=== PATIENT | female | born 1970 | race Caucasian/White ===

== ENCOUNTER → 2016-04-09 | Outpatient (CLI) | payer BC ==
--- NOTE | 2016-04-09 15:37 | MAMMOGRAPHY REPORT ---
BILATERAL DIGITAL SCREENING MAMMOGRAM TOMOSYNTHESIS WITH CAD: 04/09/2016 TECHNIQUE: Breast tomosynthesis in addition to standard 2D mammography was performed. Current study was also evaluated with a Computer Aided Detection (CAD) system. Tomosynthesis images were obtaine d of the implant displaced views only. COMPARISON: Comparison is made to exam dated: 05/28/2008. BREAST COMPOSITION: There are scattered areas of fibroglandular density in both breasts. FINDINGS: No suspicious masses, calcifications, or areas of architectural distortion are noted in e ither breast. There has been no significant interval change compared to prior exams. Bilateral subp ectoral saline implants are intact. IMPRESSION: ACR BI-RADS CATEGORY 2: BENIGN There is no mammographic evidence of malignancy. A 1 year screening mammogram is recommended. The p atient will receive written notification of the results. Approximately 10% of breast cancers are not detected with mammography. A negative mammographic repor t should not delay biopsy if a clinically suggestive mass is present. Kendal Barry M.D. ah/:04/09/2016 14:49:50 Back Filler Operator: Brittnee ROWLEY(R)(M), [facility] letter sent: Normal 1/2 BI-RADS Code: ACR BI-RADS Category 2: Benign
== END | disposition home or self-care (01) ==
LOC: C.MAMM 13:04
PROVIDERS: ATTEND Obstetrics & Gynecology
DX: Z12.31 Encounter for screening mammogram for malignant neoplasm of breast (principal)

== ENCOUNTER → 2017-01-27 | Outpatient (CLI) | payer BC ==
[2017-01-27 12:17] LABS: BASO % 0.5 %; BASO ABS # 0.02 K/uL (0-0.2); COMPLETE YES; EOS % 4.8 %; HEMATOCRIT 37.6 % (37-47); IG% 0.3 %; LYMPH % 30.1 %; LYMPH ABS # 1.19 K/uL (1.2-3.4); MEAN CELL VOLUME 88.1 fL (80-100); MEAN CORPUSCULAR HEMOGLOBIN 29.5 pg (25-34); MEAN CORPUSCULAR HGB CONC 33.5 g/dl (32-36); MEAN PLATELET VOLUME 9.5 fL (7.4-10.4); MONO % 8.1 %; NEUT % 56.2 %; PLATELET COUNT 252 K/uL (130-400); RED BLOOD COUNT 4.27 M/uL (4.2-5.4); WHITE BLOOD COUNT 3.96 K/uL (4.8-10.8)
[2017-01-27 12:44] LABS: TESTOSTERONE,TOTAL 17.7 ng/dl; THYROXINE (T4) 5.6 mcg/dl (4.5-10.9)
[2017-01-27 13:11] LABS: ALB/GLOB RATIO 1.2 (0.9-2); ALKALINE PHOSPHATASE 46 U/L (45-117); ALT/SGPT 17 U/L (12-78); AST/SGOT 14 U/L (15-37); BLOOD UREA NITROGEN 15 mg/dl (7-18); BUN/CREATININE RATIO 18.4 (10-20); CALCIUM 8.4 mg/dl (8.5-10.1); CARBON DIOXIDE 24 mmol/L (21-32); CHLORIDE 107 mmol/L (98-107); CREATININE 0.84 mg/dl (0.60-1.20); GLUCOSE 89 mg/dl (70-99); POTASSIUM 4.2 mmol/L (3.5-5.1); SODIUM 138 mmol/L (136-145)
[2017-01-28 16:29] LABS: MICROSOMAL AB 1 IU/ML (<9)
== END | disposition home or self-care (01) ==
LOC: C.LABBFT 08:26
PROVIDERS: ATTEND Family Medicine
DX: E55.9 Vitamin D deficiency, unspecified (principal); E03.9 Hypothyroidism, unspecified; D51.9 Vitamin B12 deficiency anemia, unspecified

== ENCOUNTER → 2017-06-23 | Outpatient (CLI) | payer BC | END | disposition home or self-care (01) | LOC: C.PAPS 15:15 | PROVIDERS: ATTEND Obstetrics & Gynecology | DX: Z01.419 Encounter for gynecological examination (general) (routine) without abnormal findings (principal) ==

== ENCOUNTER → 2017-07-20 | Outpatient (CLI) | payer BC ==
[~2017-07-20] MED LIST: METH1LOZ PO; THYR90TA PO; VITATAB8 PO; [UNRECOGNIZED DRUG - OTHER] PO
[2017-07-20 19:05] LABS: BASO % 0.5 %; BASO ABS # 0.03 K/uL (0-0.2); EOS % 3.4 %; EOS ABS # 0.21 K/uL (0-0.5); HEMOGLOBIN 11.7 g/dL (12.0-16.0); IG# 0.02 K/uL (0.00-0.02); LYMPH % 30.9 %; LYMPH ABS # 1.88 K/uL (1.2-3.4); MEAN CELL VOLUME 81.6 fL (80-100); MEAN CORPUSCULAR HEMOGLOBIN 27.3 pg (25-34); MEAN CORPUSCULAR HGB CONC 33.4 g/dl (32-36); MEAN PLATELET VOLUME 8.6 fL (7.4-10.4); MONO % 9.5 %; MONO ABS # 0.58 K/uL (0.11-0.59); NEUT % 55.4 %; NEUT ABS # 3.37 K/uL (1.4-6.5); PLATELET COUNT 333 K/uL (130-400); RED CELL DISTRIBUTION WIDTH CV 14.8 % (11.5-14.5); RED CELL DISTRIBUTION WIDTH SD 44.1 fL (36.4-46.3); WHITE BLOOD COUNT 6.09 K/uL (4.8-10.8)
[2017-07-20 19:18] LABS: PTT PATIENT 25.7 SECONDS (21.0-31.0)
[2017-07-20 19:23] LABS: BLOOD UREA NITROGEN 25 mg/dl (7-18); CALCIUM 8.6 mg/dl (8.5-10.1); CARBON DIOXIDE 27 mmol/L (21-32); CREATININE 1.05 mg/dl (0.60-1.20); GLUCOSE 96 mg/dl (70-99); POTASSIUM 3.9 mmol/L (3.5-5.1); SODIUM 141 mmol/L (136-145)
== END | disposition home or self-care (01) ==
LOC: C.LAB 18:41
PROVIDERS: ATTEND Physician Assistant
DX: Z01.818 Encounter for other preprocedural examination (principal); D17.1 Benign lipomatous neoplasm of skin and subcutaneous tissue of trunk

== ENCOUNTER → 2017-07-29 | Day surgery (SDC) | payer BC ==
[2017-07-21 11:05] VITALS: Ht 162.6 cm; Wt 74.5 kg
[~2017-07-29] VITALS: Ht 162.6 cm; Wt 74.5 kg
[~2017-07-29] MED LIST changes: +ACETAMINOPHEN 325 MG TAB PO PRN; +ATROPINE SULFATE 0.1 MG/ML 5ML SYR IV PRN; +BUPIVACAINE 0.25% 30 ML VIAL ONE; +CEFAZOLIN 2000MG IV PUSH 15 ML IV SCH; +DEXAMETHASONE SOD INJ 4 MG/ML VIAL ONE; +EpHEDrine SULFATE 50MG/5ML SYR ONE; +EpHEDrine SULFATE INJ 50 MG/ML AMP IV PRN; +FENTANYL CITRATE INJ 50 MCG/1 ML 2 ML VIAL IV PRN; +FENTANYL CITRATE INJ 50 MCG/1 ML 2 ML VIAL ONE; +GLYCOPYRROLATE INJ 0.2 MG/ML VIAL ONE; +LACTATED RINGER'S 1000ML 1,000 ML IV SCH; +LIDOCAINE HCL 2% 2 ML VIAL (20MG/ML) ONE; +LIDOCAINE/EPINEPHRINE 1% 20 ML VIAL ONE; +METOCLOPRAMIDE HCL INJ 5 MG/ML 2 ML VIAL IV PRN; +METOCLOPRAMIDE HCL INJ 5 MG/ML 2 ML VIAL ONE; +MIDAZOLAM HCL 1 MG/ML 2ML VIAL ONE; +NEOSTIGMINE METHYLSULFATE 5 MG/5 ML SYR ONE; +ONDANSETRON INJ 2 MG/ML 2 ML VIAL IV PRN; +ONDANSETRON INJ 2 MG/ML 2 ML VIAL ONE; +OXYCODONE/ACETAMINOPHEN 5-325 TAB PO PRN; +PROPOFOL IV EMULSION 10 MG/ML 20 ML VIAL ONE; +ROCURONIUM BROMIDE 10 MG/ML 5 ML VIAL ONE; +SODIUM CHLORIDE 0.9% 1000ML 1,000 ML IV SCH
--- NOTE | 2017-07-29 08:14 | History & Physical Bridge - [place] ---
H&P Re-Evaluation Bridge Note: I have examined the patient, reviewed the History & Physical and in the interval since the performance of the History & Physical I have noted the following changes of clinical significance: No changes noted
--- NOTE | 2017-07-29 09:09 | [facility] Post Operative Brief Note ---
Immediate Operative Summary Operative Date July 29, 2017. Pre-Operative Diagnosis LIPOMA OF BACK Post-Operative Diagnosis SAME Procedure(s) Performed Central Back Lipoma Excision Surgeon Dr. Kg De La Vega Rate Clerk Passenger Surgeon(s) Suzi Sue PA-C Estimated Blood Loss 2 Findings Consistent with Post-Op Diagnosis Specimens A. Lipoma of Back Drains 1/4 inch kali Anesthesia Type General Complication(s) none Disposition Disposition: Recovery Room / PACU
--- NOTE | 2017-07-29 09:17 | Discharge Instructions ---
Discharge Instructions Date of Service July 29, 2017. Admission Reason for Admission: Lipoma Of Back Discharge Discharge Diagnosis / Problem: recurrent lipoma Discharge Goals Goal(s): Decrease discomfort Activity Recommendations Activity Limitations: per Instructions/Follow-up section ACTIVITY RECOMMENDATIONS: __Normal activities _x_No bending, lifting or straining __No driving x__Driving allowed when you are off pain medications _x_Walking permitted __You should have help at home for ___ days DRESSINGS: __No dressings required _x_Keep dressings dry/in place until first office visit. Expect bloody drainage on the gauze. This is due to the drain in place and is normal. __Remove dressings ___ and leave dressings off _x_Apply ice __3_ days __Remove dressings and reapply garment __Apply antibiotic ointment (Bacitracin, Neosporin, etc) to wounds 3-4 times/ day for 10 days BATHING: _x_Keep dressings dry __Sponge bathing permitted __Showering permitted _x_No swimming, hot tubs or soaking in a tub. No showers until seen in office MEDICATIONS: Resume previous medications unless instructed otherwise by your surgeon. _x_Do not use aspirin, Motrin, Advil or Ibuprofen as these may promote bleeding. Please use Tylenol. _x_Prescription(s) provided: pain medication was provided at your last office visit OTHER INSTRUCTIONS: __Record drain output 2-3 times per day SPECIAL CARE INSTRUCTIONS: * It is normal to have a mild fever after surgery. If your temperature is higher than 101.5 degrees F, please call the office at [phone]. * Constipation is a typical side effect of pain medication. An over-the- counter stool softener will help relieve this. * Leaking around surgical drains may occur and should not cause concern. Sometimes these drains become clogged. If this happens, remove the bulb and milk the clot out of the tube, then replace the bulb. * Drainage from wounds after liposuction is normal and should be expected. Garments will become soiled. You should protect furniture and bedding. This drainage should mostly subside within 2-3 days. Leave garments in place unless instructed to remove them. * If you have unusual drainage from a wound or are concerned you have an infection or have any questions or concerns, please call the office at [phone]. FOLLOW UP VISIT: If not already scheduled, please call the office, , when you return home after surgery to schedule an appointment to be seen in _3__ days. . Current Hospital Diet Patient's current hospital diet: Discharge Diet Recommended Diet: Regular Diet Procedures Procedures Performed: Central Back Lipoma Excision Pending Studies Studies pending at discharge: yes List of pending studies: lipoma Medical Emergencies . Who to Call and When: Medical Emergencies: If at any time you feel your situation is an emergency, please call 911 immediately. . Non-Emergent Contact Non-Emergency issues call your: Primary Care Provider, Surgeon . "Provider Documentation" section prepared by Suzi Sue. . [place] Drug Monitoring Program Search Results: no issues identified
--- NOTE | 2017-07-29 10:00 | Anesthesia Progress Nt - [facility] ---
Anesthesia Post Op Note Date & Time July 29, 2017 at 10:00 Vital Signs Pain Intensity: 2 Vital Signs Past 12 Hours Date Time Temp Pulse Resp B/P (MAP) Pulse Ox O2 Delivery O2 Flow Rate FiO2 07/29/17 09:55 36.9 67 12 101/59 98 Room Air 07/29/17 09:42 69 17 100 07/29/17 09:42 69 17 07/29/17 09:41 102/59 07/29/17 09:37 67 14 07/29/17 09:37 67 14 100 07/29/17 09:36 101/52 07/29/17 09:32 69 15 100 07/29/17 09:32 70 15 07/29/17 09:31 93/50 07/29/17 09:28 73 15 100 07/29/17 09:28 73 15 07/29/17 09:27 111/57 07/29/17 09:26 77/57 07/29/17 09:24 100/52 07/29/17 09:23 36.4 92 16 100/52 98 Diffusion Mask 6 07/29/17 07:17 36.6 65 20 113/76 (88) 99 Room Air Notes Mental Status: alert / awake / arousable, participated in evaluation Pt Amnestic to Procedure: Yes Nausea / Vomiting: adequately controlled Pain: adequately controlled Airway Patency, RR, SpO2: stable & adequate BP & HR: stable & adequate Hydration State: stable & adequate Anesthetic Complications: no major complications apparent
[2017-07-29 10:05] VITALS: TEMP 36.3
[2017-07-29 10:24] VITALS: BP 115/84; PULSE 81; O2SAT 99
--- NOTE | 2017-07-29 14:18 | OPERATIVE REPORT ---
DATE OF OPERATION: 07/29/2017 PREOPERATIVE DIAGNOSIS: Left upper back recurrent lipoma. POSTOPERATIVE DIAGNOSIS: Left upper back recurrent lipoma. PROCEDURE: Excision of recurrent subcutaneous left upper back lipoma. SURGEON: Berta De La Vega MD POPCORN ATTENDANT: Suzi Sue PA-C ANESTHESIA: General. COMPLICATIONS: None. INDICATION FOR THE PROCEDURE: The patient is a 47-year-old female who presented at the request of her primary care physician regarding recurrent lipoma of her central back which had been previously removed in 2003. It was noted to be a benign lipoma at that time and was performed under local anesthesia by a prior surgeon. She found this to be quite painful. The lipoma recurred and she states her chiropractor feels her lipoma is causing issues related to her cervical disc disease. She desired a reexcision. BRIEF DESCRIPTION OF THE PROCEDURE: The risks, benefits, and alternatives of the procedure were explained to the patient who agreed and signed consent. She was identified and marked in the preoperative holding area. She was brought to the operating room where she was placed under general anesthesia and positioned prone. The surgical site was prepped and draped sterilely. The borders of the lipoma were marked as well as the prior scar. 1% lidocaine with epinephrine mixed with 0.25% Marcaine plain was used to anesthetize the area. A 15-blade scalpel made the incision through the prior scar. Just deep to dermis the lipoma was encountered. There was significant scar associated with it. Sharp dissection was performed using a curved iris scissor to completely free the lipoma from the underlying dermis and surrounding scar tissue. Hemostasis was achieved with electrocautery throughout this procedure. At the base of the wound, the lipoma was noted to be firmly adherent to the underlying muscle fascia. The lipoma was dissected off of the underlying muscle with some of the associated fascia using electrocautery. Hemostasis was achieved with electrocautery. The wound was irrigated with normal saline. Lipoma measured 4.6 x 4.2 cm. No residual lipoma was encountered. Due to the fairly sizable cavity, I elected to place a quarter inch [place] drain which was brought out through the incision. The incision was closed using 2-0 Vicryl interrupted deep dermal sutures, 3-0 PDS interrupted superficial dermal sutures, 3-0 Monocryl running subcuticular suture. Dermabond was applied. 4 x 4's and ABD and Tegaderm with benzoin were applied over the incision site and the drain. The blood loss was 2 mL. The patient tolerated the procedure well, was extubated, and transferred to recovery in satisfactory condition. I attest to the content of the Intraoperative Record and any orders documented therein. Any exception s are noted below.
== END | disposition home or self-care (01) ==
LOC: X.SURG 07:07
PROVIDERS: ATTEND Plastic Surgery
DX: D17.39 Benign lipomatous neoplasm of skin and subcutaneous tissue of other sites (principal); F32.9 Major depressive disorder, single episode, unspecified; Z87.440 Personal history of urinary (tract) infections; Z88.2 Allergy status to sulfonamides